=== PATIENT | female | born 1995 ===

== ENCOUNTER 2020-08-15 07:40 | Emergency (ER) | payer OTHER ==
[~2020-08-15] VITALS: Ht 152.4 cm; Wt 61.4 kg
--- NOTE | 2020-08-15 08:42 | NUR ---
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
--- NOTE | 2020-08-15 09:23 | NUR ---
PT BIB FAMILY VIA POV D/T CP THAT STARTED YESTERDAY AFTERNOON. PER PT THE CP CAUSED HER TO HAVE A SYNCOPAL EPISODE AND GET DIZZY. PT IS CURRENTLY 5.5 WEEKS , LMP ON 07/01/20. PT STATES NO COMPLAINTS RIGHT NOW EXCEPT FOR SOME CHEST TIGHTNESS. PT RESTING IN [facility], MONITORING IN PLACE, NADN AT THIS TIME, PT STATES NO COMPLAINTS AT THIS TIME, WCTM.
[2020-08-15] MEDS ORDERED: ASPIRIN 81 MG TABLET CHEW ONE (09:53)
[2020-08-15 10:07] LABS: BASOPHILS % (AUTO) 1 % (0-1); EOSINOPHILS % (AUTO) 1 % (1-7); LYMPHOCYTES % (AUTO) 23 % (22-44); MEAN CORPUSCULAR HEMOGLOBIN 29.8 pg (27.0-34.8); MEAN CORPUSCULAR HGB CONC 33.8 g/dL (32.4-35.8); MEAN PLATELET VOLUME 7.4 fL (7.4-10.4); MONOCYTES % (AUTO) 6 % (2-9); NEUTROPHILS % (AUTO) 70 % (42-75); PLATELET COUNT 357 x10^3/uL (130-400); RED BLOOD COUNT 4.74 x10^6/uL (3.82-5.3); RED CELL DISTRIBUTION WIDTH 13.9 % (9.6-15.2)
[2020-08-15 10:12] LABS: ALANINE AMINOTRANSFERASE 26 U/L (12-78); ALBUMIN 3.7 g/dL (3.4-5.0); ANION GAP 7 mmol/L (5-15); CALCIUM 9.2 mg/dL (8.5-10.1); CHLORIDE 111 mmol/L (98-107)
[2020-08-15 10:15] LABS: ALKALINE PHOSPHATASE 56 U/L (45-117); BILIRUBIN,TOTAL 0.4 mg/dL (0.2-1.0); CREATININE 0.64 mg/dL (0.55-1.02); TOTAL PROTEIN 7.3 g/dL (6.4-8.2)
[2020-08-15] MEDS ORDERED: ASPIRIN 81 MG TABLET CHEW PO ONE (10:30)
[2020-08-15] MEDS ORDERED: SODIUM CHLORIDE 0.9% 1,000ML IVBOLUS ONE (10:30)
[2020-08-15] MEDS ORDERED: SODIUM CHLORIDE FLUSH 10ML SYR IVF ONE (10:30)
--- NOTE | 2020-08-15 11:00 | NUR ---
PT AMBULATED TO RESTROOM STEADILY AT THIS TIME.
[2020-08-15 11:22] VITALS: BP 111/56
[2020-08-15 11:29] LABS: MICROSCOPIC NOT IND
--- NOTE | 2020-08-15 12:01 | NUR ---
PT RESTING IN [facility], AWAITING ULTRASOUND AT THIS TIME, MONITORING IN PLACE, NADN AT THIS TIME, PT STATES NO NEEDS, WCTM.
== END 2020-08-15 13:00 | disposition home or self-care (01) ==
LOC: ED 09:25
DX: O26.891 Other specified pregnancy related conditions, first trimester (principal); R55 Syncope and collapse; R07.89 Other chest pain; R94.31 Abnormal electrocardiogram [ECG] [EKG]; I10 Essential (primary) hypertension; Z3A.01 Less than 8 weeks gestation of pregnancy
CPT/HCPCS: 36415; 76801; 80053; 81003; 85025; 93005; 99285; J7030